=== PATIENT | female | born 1960 | race Caucasian/White ===

== ENCOUNTER 2018-10-10 05:11 | Day surgery (SDC) | payer MEDICAID ==
[2018-10-03 16:24] LABS: BASOPHILS % (AUTO) 0.4 % (0-1); EOSINOPHILS # (AUTO) 0.1 X10'3 (0-0.9); LYMPHOCYTES # (AUTO) 2.4 X10'3 (1.1-4.8); MEAN CORPUSCULAR HEMOGLOBIN 29.4 PG (27.0-31.0); MEAN CORPUSCULAR HGB CONC 32.9 % (33.0-36.5); MEAN CORPUSCULAR VOLUME 89.5 FL (78-98); MONOCYTES # (AUTO) 0.5 X10'3 (0-0.9); MONOCYTES % (AUTO) 7.2 % (2-12); NEUTROPHILS # (AUTO) 4.1 X10'3 (1.8-7.7); NEUTROPHILS % (AUTO) 57.4 % (42-75); PRE OP HEMOGLOBIN 14.1 g/dL (12.0-16.0); PRE OP PLATELET COUNT 242 X10'3 (140-440); RED BLOOD COUNT 4.81 X10'6 (4.20-5.60); RED CELL DISTRIBUTION WIDTH 13.5 % (11.5-14.5)
[2018-10-03 16:40] LABS: ALBUMIN 3.9 G/DL (3.4-5.0); ALBUMIN/GLOBULIN RATIO 1.2 (1.1-1.5); ALKALINE PHOSPHATASE 77 IU/L (46-116); BLOOD UREA NITROGEN 15 MG/DL (7-18); BUN/CREATININE RATIO 19.7 (6.6-38.0); CHLORIDE 105 MMOL/L (99-107); CREATININE 0.76 MG/DL (0.40-0.90); PRE OP ALT 20 U/L (30-65); PRE OP ANION GAP 7 (8-16); PRE OP AST 17 U/L (10-37); PRE OP BILIRUB, TOTAL 0.3 MG/DL (0.0-1.0); PRE OP GLUCOSE 89 MG/DL (70-104); PRE OP POTASSIUM 3.7 MMOL/L (3.4-5.1); PRE OP SODIUM 143 MMOL/L (135-145); TOTAL CARBON DIOXIDE 30.6 MMOL/L (24-32); TOTAL PROTEIN 7.1 G/DL (6.4-8.2); eGFR 78 ML/MIN
[2018-10-03 16:45] LABS: PRE OP PROTIME 10.4 SECONDS (9.0-12.0)
[2018-10-10] VITALS (19 sets, daily range): BP systolic 90–138; BP diastolic 51–81
[~2018-10-10] VITALS: Ht 170.2 cm; Wt 66.7 kg
[~2018-10-10 05:11] MED LIST: ESCI10TA54 PO; ringers solution, lacted 1,000 ML IV SCH
[2018-10-10] MEDS ORDERED: ceFOXitin 2 GM ADDvantage bag 100 ML IV ONE (05:30)
[2018-10-10] MEDS ORDERED: famotidine 20mg tablet PO ONE (05:30)
[2018-10-10] MEDS ORDERED: LIDOcaine 1% (10mg/ml) 2ml vial ONE (06:18)
[2018-10-10] MEDS ORDERED: morphine 10mg/ml inj. ONE (06:57)
[2018-10-10] MEDS ORDERED: BUPIVAcaine/PF 2.5mg/ml (0.25%) 10ml vial ONE (06:57)
[2018-10-10] MEDS ORDERED: clindamycin phosphate 40gm vag cream ONE (06:57)
[2018-10-10] MEDS ORDERED: LIDOcaine 1% 30ml preserv. free vial ONE (06:57)
[2018-10-10] MEDS ORDERED: vasoPRESSIN 20 units/ml inj. ONE (06:58)
[2018-10-10] MEDS ORDERED: sevoflurane 250ml liquid IH ONE (08:04)
[2018-10-10] MEDS ORDERED: dexamethasone sod phosphate 10mg/ml inj ONE (08:04)
[2018-10-10] MEDS ORDERED: fentaNYL/PF 50MCG/1 ML 2ML syringe ONE (08:11)
[2018-10-10] MEDS ORDERED: midazolam 2 mg/2 ml injection ONE (08:12)
[2018-10-10] MEDS ORDERED: propofol inj 20 ML IV ONE (08:15)
[2018-10-10] MEDS ORDERED: metoprolol tartrate 1mg/ml inj IV ONE ×2 (08:15→09:05)
[2018-10-10] MEDS ORDERED: neostigmine methylsulfate 1 MG/ML 10ml vial ONE (08:25)
[2018-10-10] MEDS ORDERED: ondansetron/PF 4mg/2ml inj ONE (08:25)
[2018-10-10] MEDS ORDERED: rocuronium 10mg/ml inj IV ONE ×2 (08:25→09:45)
[2018-10-10] MEDS ORDERED: glycopyrrolate 0.2mg/ml inj ONE (08:25)
[2018-10-10] MEDS ORDERED: LIDOcaine 2% (20mg/ml) 5ml vial ONE (08:26)
[2018-10-10] MEDS ORDERED: ringers solution, lacted 1,000 ML IV SCH (08:52)
[2018-10-10] MEDS ORDERED: morphine 4 MG/ML inj SYRINge IV PRN ×2 (08:55)
[2018-10-10] MEDS ORDERED: fentaNYL/PF 50MCG/1 ML 2ML syringe IV PRN ×2 (08:55)
[2018-10-10] MEDS ORDERED: hydrALAZINE 20mg/ml inj. IV PRN (08:55)
[2018-10-10] MEDS ORDERED: ondansetron/PF 4mg/2ml inj IV PRN ×2 (08:55→10:30)
[2018-10-10] MEDS ORDERED: enalaprilat dihydrate 2.5mg/2ml vial IV PRN (08:55)
[2018-10-10] MEDS ORDERED: hydrALAZINE 20mg/ml inj. IV ONE (09:05)
[2018-10-10] MEDS ORDERED: fluoroscein sod 10% (100mg/ml) 5ml vial ONE (09:48)
[2018-10-10] MEDS ORDERED: temazepam 15mg capsule PO PRN (10:30)
[2018-10-10] MEDS ORDERED: CADD PCA waste documentation MC PRN (10:30)
[2018-10-10] MEDS ORDERED: normal saline 500ml IV soln 500 ML IV PRN (10:30)
[2018-10-10] MEDS ORDERED: ketorolac trometh. 30mg/ml inj. IV PRN (10:30)
[2018-10-10] MEDS ORDERED: diphenhydrAMINE 50 mg/ml inj IV PRN (10:30)
[2018-10-10] MEDS ORDERED: magnesium hydroxide 30ml (MOM) UD suspension PO PRN (10:30)
[2018-10-10] MEDS ORDERED: naloxone 0.4 mg/ml inj IV PRN (10:30)
[2018-10-10] MEDS ORDERED: HYDROcodone/acetaminophen 5mg/325mg tablet PO PRN ×2 (10:30)
[2018-10-10] MEDS: HYDROmorphone/NS 1 mg/ml CADD 50 ML IV SCH ×7 (11:25→22:23)
[2018-10-10] MEDS: ringers solution, lacted 1,000 ML IV SCH ×2 (14:59→18:28)
[2018-10-10] MEDS: simethicone 80mg chew tab PO SCH ×2 (15:02→19:28)
[2018-10-11] MEDS: HYDROmorphone/NS 1 mg/ml CADD 50 ML IV SCH ×6 (00:42→10:17)
[2018-10-11] MEDS: ringers solution, lacted 1,000 ML IV SCH (02:28)
[2018-10-11 05:18] LABS: BASOPHILS # (AUTO) 0.1 X10'3 (0-0.2); BASOPHILS % (AUTO) 0.8 % (0-1); EOSINOPHILS # (AUTO) 0.1 X10'3 (0-0.9); EOSINOPHILS % (AUTO) 0.9 % (0-6); HEMATOCRIT 36.7 % (35.0-45.0); HEMOGLOBIN 12.2 g/dl (12.0-16.0); LYMPHOCYTES # (AUTO) 1.2 X10'3 (1.1-4.8); LYMPHOCYTES % (AUTO) 10.9 % (21-51); MEAN CORPUSCULAR HEMOGLOBIN 29.6 PG (27.0-31.0); MEAN CORPUSCULAR HGB CONC 33.3 % (33.0-36.5); MEAN CORPUSCULAR VOLUME 88.9 FL (78-98); MEAN PLATELET VOLUME 9.1 FL (7.4-10.4); MONOCYTES # (AUTO) 0.8 X10'3 (0-0.9); NEUTROPHILS # (AUTO) 8.8 X10'3 (1.8-7.7); NEUTROPHILS % (AUTO) 80.4 % (42-75); PLATELET COUNT 181 X10'3 (140-440); RED BLOOD COUNT 4.13 X10'6 (4.20-5.60); RED CELL DISTRIBUTION WIDTH 13.6 % (11.5-14.5); WHITE BLOOD COUNT 10.9 X10'3 (4.5-11.0)
[2018-10-11 07:00] VITALS: BP 112/59
[2018-10-11] MEDS ORDERED: CITALOpram 10mg tablet PO SCH (08:00)
[2018-10-11] MEDS: simethicone 80mg chew tab PO SCH ×2 (08:51→12:14)
[2018-10-11 11:13] VITALS: BP 118/67
== END 2018-10-11 17:30 | disposition home or self-care (01) ==
LOC: PAS 05:11 → SUR 3N 10:28 → PAS 10-11 17:30
PROVIDERS: ATTEND Specialist
DX: N72 Inflammatory disease of cervix uteri (principal); N76.1 Subacute and chronic vaginitis; N81.4 Uterovaginal prolapse, unspecified; N39.46 Mixed incontinence; N73.6 Female pelvic peritoneal adhesions (postinfective); N36.42 Intrinsic sphincter deficiency (ISD); F32.9 Major depressive disorder, single episode, unspecified; Z87.891 Personal history of nicotine dependence; Z88.1 Allergy status to other antibiotic agents; Z79.1 Long term (current) use of non-steroidal anti-inflammatories (NSAID); Z79.891 Long term (current) use of opiate analgesic; Z98.51 Tubal ligation status; Z98.890 Other specified postprocedural states; Z79.899 Other long term (current) drug therapy
CPT/HCPCS: 36415; 49329; 57240; 57283; 57288; 58552; 80053; 85025; 85610; 85730; 86885; 86900; 86901; A6255; J0360; J0690; J0694; J1100; J1170; J2001; J2250; J2270; J2405; J2704; J2710; J3010; J3490; J7120; A4315; A4355; A6250; A7000; C1771; G0378; J7030